=== PATIENT | male | born 1990 | race Caucasian/White ===

== ENCOUNTER 2025-01-19 17:19 | Emergency (ER) | payer SELFPAY ==
[~2025-01-19] VITALS: Ht 175.3 cm; Wt 84.1 kg
[2025-01-19 17:28] VITALS: TEMP 97.7
[2025-01-19 18:23] LABS: PLATELET COUNT (AUTO) 357 K/uL (150-450); RED BLOOD CELL COUNT(AUTO) 5.15 MIL/uL (4.50-5.90); RED CELL DISTRIBUTION WIDTH 12.6 % (11.5-14.5); WHITE BLOOD COUNT (AUTO) 9.1 K/uL (4.5-11.0)
[2025-01-19 18:28] VITALS: BP 131/78; PULSE 103; RESP 16; O2SAT 95
[2025-01-19 18:28] LABS: CALCIUM, TOTAL 8.0 mg/dL (8.8-10.5); CREATININE 1.05 mg/dL (0.60-1.30); GLOMERULAR FILTR. RATE CALC > 60 mL/min (>60); GLUCOSE,RANDOM 156 mg/dL (70-110); SODIUM SERUM 143 mmol/L (136-145); UREA NITROGEN, BLOOD 6 mg/dL (7-18)
[2025-01-19 18:33] LABS: ASPARTATE AMINOTRANSFERASE 81 U/L (15-37); TOTAL PROTEIN, SERUM 7.0 g/dL (6.4-8.2)
[2025-01-19 18:34] LABS: ALCOHOL, BLOOD (SERUM) 266 mg/dL (0-10)
[2025-01-19] MEDS: FAMOTIDINE 20 MG/2 ML VIAL IVP ONE (18:35)
[2025-01-19] MEDS: SODIUM CHLORIDE 0.9% 1,000 ML IV ONE (18:35)
[2025-01-19] MEDS: ONDANSETRON HCL 4 MG/2 ML VIAL IVP ONE (18:35)
== END 2025-01-19 22:18 | disposition home or self-care (01) ==
LOC: EMS 17:19
DX: F10.229 Alcohol dependence with intoxication, unspecified (principal); Z79.899 Other long term (current) drug therapy; Y90.9 Presence of alcohol in blood, level not specified
CPT/HCPCS: 99284; 96374; 96375; 80053; 85025; 36415; G0480; J3490; J2405; J7030

== ENCOUNTER 2025-02-23 13:46 | Emergency (ER) | payer OTHER ==
[~2025-02-23] VITALS: Ht 170.2 cm; Wt 90.1 kg
[2025-02-23 13:56] VITALS: TEMP 98.1
[2025-02-23] MEDS: SODIUM CHLORIDE 0.9% 1,000 ML IV ONE (14:29)
[2025-02-23 14:31] LABS: PLATELET COUNT (AUTO) 399 K/uL (150-450); RED BLOOD CELL COUNT(AUTO) 5.41 MIL/uL (4.50-5.90); RED CELL DISTRIBUTION WIDTH 14.8 % (11.5-14.5); WHITE BLOOD COUNT (AUTO) 9.4 K/uL (4.5-11.0)
[2025-02-23 14:31] LABS: GLUCOMETER DEV NAME(LOC) ERT.7; GLUCOSE,POINT OF CARE 179 MG/DL (70-110)
[2025-02-23 14:39] LABS: CALCIUM, TOTAL 8.1 mg/dL (8.8-10.5); CREATININE 1.22 mg/dL (0.60-1.30); GLOMERULAR FILTR. RATE CALC > 60 mL/min (>60); GLUCOSE,RANDOM 173 mg/dL (70-110); SODIUM SERUM 138 mmol/L (136-145); UREA NITROGEN, BLOOD 15 mg/dL (7-18)
[2025-02-23] MEDS: MAGNESIUM SULFATE 2 GM, MVI, ADULT NO.1 WITH VIT K 10 ML, THIAMINE 100 MG, FOLIC ACID 1... IV ONE (16:24)
[2025-02-23 16:37] VITALS: BP 120/96; PULSE 84; RESP 18; O2SAT 95
== END 2025-02-23 17:46 | disposition left against medical advice (07) ==
LOC: EMS 13:46
DX: F10.229 Alcohol dependence with intoxication, unspecified (principal); F10.239 Alcohol dependence with withdrawal, unspecified; Z98.890 Other specified postprocedural states; Z53.29 Procedure and treatment not carried out because of patient's decision for other reasons; Z88.5 Allergy status to narcotic agent; Y90.8 Blood alcohol level of 240 mg/100 ml or more
CPT/HCPCS: 99284; 96365; 96361; 80048; 82962; 83735; 85025; 36415; G0480; J3490 ×2; J3411; J3475; J7030

== ENCOUNTER 2025-02-24 04:51 | Emergency (ER) | payer OTHER ==
[~2025-02-24] VITALS: Ht 177.8 cm; Wt 100.0 kg
[2025-02-24 05:08] VITALS: BP 180/136; PULSE 99; RESP 24; O2SAT 98
[2025-02-24 06:11] LABS: PLATELET COUNT (AUTO) 357 K/uL (150-450); RED BLOOD CELL COUNT(AUTO) 5.12 MIL/uL (4.50-5.90); RED CELL DISTRIBUTION WIDTH 14.5 % (11.5-14.5); WHITE BLOOD COUNT (AUTO) 12.1 K/uL (4.5-11.0)
[2025-02-24 06:23] LABS: CALCIUM, TOTAL 9.5 mg/dL (8.8-10.5); CREATININE 1.09 mg/dL (0.60-1.30); GLOMERULAR FILTR. RATE CALC > 60 mL/min (>60); GLUCOSE,RANDOM 133 mg/dL (70-110); SODIUM SERUM 136 mmol/L (136-145); UREA NITROGEN, BLOOD 16 mg/dL (7-18)
[2025-02-24 06:29] LABS: ASPARTATE AMINOTRANSFERASE 54.0 U/L (15-37); TOTAL PROTEIN, SERUM 7.3 g/dL (6.4-8.2)
[2025-02-24 06:44] LABS: ALCOHOL, BLOOD (SERUM) 74.0 mg/dL (0-10)
== END 2025-02-24 07:11 | disposition left against medical advice (07) ==
LOC: EMS 04:51
DX: F10.239 Alcohol dependence with withdrawal, unspecified (principal); Z53.21 Procedure and treatment not carried out due to patient leaving prior to being seen by health care provider
CPT/HCPCS: 99282; 80048; 80076; 85025; 36415; G0480; 99281